=== PATIENT | male | born 1945 | race Caucasian/White ===

== ENCOUNTER 2023-08-24 22:55 | Inpatient (IN) | payer MEDICARE ==
[2023-08-25] MEDS ORDERED: Acetaminophen 650 MG Suppository PR PRN (01:21)
[2023-08-25] MEDS ORDERED: Ondansetron ODT 4 MG TAB PO PRN (01:21)
[2023-08-25] MEDS ORDERED: Ondansetron PF 4 MG/2 ML Vial IVP PRN (01:21)
[2023-08-25] MEDS ORDERED: Acetaminophen 325 MG TAB PO PRN (01:21)
[2023-08-25] MEDS ORDERED: Glucagon 1 MG/ML KIT IM PRN (02:17)
[2023-08-25] MEDS ORDERED: Dextrose 5% in Water 1,000 ML IV PRN (02:17)
[2023-08-25] MEDS ORDERED: Dextrose 50% Abboject 50 ML SYRINGE SLOW IVP PRN (02:17)
[2023-08-25] MEDS ORDERED: HumaLOG 300 UNITS/3 ML VIAL SC PRN (02:17)
[2023-08-25] MEDS ORDERED: Dexamethasone 10 MG/ML VIAL ONE ×3 (02:41→14:14)
[2023-08-25] MEDS: Dexamethasone 4 mg/ml Vial SLOW IVP SCH ×4 (02:44→20:18)
[2023-08-25] MEDS ORDERED: Magnevist 469MG/ML 20 ML VIAL ONE (09:35)
[2023-08-25] MEDS ORDERED: Lisinopril 10 MG TAB PO SCH (10:15)
[2023-08-25] MEDS ORDERED: Lisinopril 10 MG TAB ONE (10:39)
[2023-08-25] MEDS: Sodium Chloride 0.9% 1,000 ML IV SCH (10:44)
[2023-08-25] MEDS: HumaLOG 300 UNITS/3 ML VIAL SC PRN (14:11)
[2023-08-25] MEDS ORDERED: HumaLOG 300 UNITS/3 ML VIAL ONE (14:14)
[2023-08-25 14:33] LABS: #Monocytes 0.6 thou/uL (0.11-0.59); #Neutrophils 7.6 thou/uL (1.40-6.50); %Basophils 0.1 % (0.0-1.0); %Lymphocytes 12.3 % (21.0-51.0); %Monocytes 6.4 % (0.0-10.0); %Neutrophils 80.9 % (42.0-75.0); Hematocrit 51.8 % (42.0-52.0); Hemoglobin 17.8 g/dL (14.0-18.0); Mean Corpuscular HGB CONC 34.4 g/dL (32.0-36.0); Mean Corpuscular Hemoglobin 30.4 pg (27.0-31.0); Mean Corpuscular Volume 88.5 fl (78.0-98.0); Mean Platelet Volume 10.7 fL (7.4-10.4); Platelet Count 212 10x3/uL (130-400); RBC Distribution Width 13.6 % (11.5-14.5); Red Blood Cell (RBC) Count 5.85 mill/uL (4.70-6.10); White Blood Cell (WBC) Count 9.4 10x3/uL (4.8-10.8)
[2023-08-25 15:00] LABS: Anion Gap 16 mmol/L (10-20); BUN (Urea Nitrogen) 23 mg/dL (8.4-25.7); Calc. Creatinine Clearance 64 mL/min (70-130); Calcium 9.7 mg/dL (7.8-10.44); Carbon Dioxide 20 mmol/L (23-31); Chloride 105 mmol/L (98-107); Estimated GFR 67; Glucose 208 mg/dL (83-110); Potassium 3.9 mmol/L (3.5-5.1); Sodium 137 mmol/L (136-145)
[2023-08-25] MEDS: metFORMIN 500 MG TAB PO SCH (18:40)
[2023-08-25] MEDS: levETIRAcetam 500 MG TAB PO SCH (20:17)
[2023-08-26] MEDS: Sodium Chloride 0.9% 1,000 ML IV SCH ×2 (00:38→15:10)
[2023-08-26] MEDS: Dexamethasone 4 mg/ml Vial SLOW IVP SCH ×2 (03:02→09:10)
[2023-08-26] MEDS: HumaLOG 300 UNITS/3 ML VIAL SC PRN (06:21)
[2023-08-26 08:21] VITALS: TEMP 98
[2023-08-26 08:50] VITALS: BMI 27.6
[2023-08-26] MEDS ORDERED: Lisinopril 10 MG TAB PO SCH (09:00)
[2023-08-26] MEDS ORDERED: Dutasteride 0.5 MG CAP PO SCH (09:00)
[2023-08-26] MEDS ORDERED: Hydrochlorothiazide 25 MG TAB PO SCH (09:00)
[2023-08-26] MEDS: metFORMIN 500 MG TAB PO SCH (09:10)
[2023-08-26] MEDS: levETIRAcetam 500 MG TAB PO SCH (09:10)
[2023-08-26 09:15] VITALS: BP 115/76
[2023-08-26] MEDS ORDERED: Atorvastatin Calcium 20 MG TAB PO SCH (21:00)
[2023-08-28] MEDS ORDERED: FLU VACC QS2023(65UP)/MF59C/PF 60 MCG/0.5 ML SYRINGE IM ONE (17:15)
[2023-08-30] MEDS ORDERED: Ergocalciferol 1.25 MG(50,000 UNITS) CAP PO SCH (09:00)
== END 2023-08-26 13:17 | disposition home or self-care (01) | DRG 72 ==
LOC: ERS 22:55 → ERHOLD 08-25 00:37 → SJJU 08-25 15:26
PROVIDERS: ADMIT Student in an Organized Health Care Education/Training Program; ATTEND Internal Medicine
DX: G93.89 Other specified disorders of brain (principal); Z79.899 Other long term (current) drug therapy; Z79.84 Long term (current) use of oral hypoglycemic drugs; E11.9 Type 2 diabetes mellitus without complications; E78.00 Pure hypercholesterolemia, unspecified; I10 Essential (primary) hypertension
CPT/HCPCS: 36415; 36416; 70553; 80048; 85025; A9579; J1100; J1815; J7050

== ENCOUNTER 2023-09-28 07:39 | Outpatient (CLI) | payer MEDICARE ==
[2023-09-28] MEDS ORDERED: Magnevist 469MG/ML 20 ML VIAL ONE (10:43)
== END 2023-09-28 07:40 | disposition home or self-care (01) ==
LOC: MRI 07:39
PROVIDERS: ATTEND Radiology Radiation Oncology
DX: C71.9 Malignant neoplasm of brain, unspecified (principal); G93.6 Cerebral edema; R90.89 Other abnormal findings on diagnostic imaging of central nervous system; G97.62 Postprocedural hematoma of a nervous system organ or structure following other procedure; G93.89 Other specified disorders of brain; Z98.890 Other specified postprocedural states
CPT/HCPCS: 70553; A9579